=== PATIENT | male | born 1955 | race Caucasian/White ===

== ENCOUNTER 2017-05-03 15:51 | Inpatient (IN) | payer MEDICAID ==
[~2017-05-03] VITALS: Ht 170.2 cm; Wt 90.1 kg
[~2017-05-03 15:51] MED LIST: ALLO300T2 PO; AMLO-94 PO; ATOR20TA66 PO; DABI150C PO; HYDR-4070 PO; LANTUS SQ; OMEP20CA10 PO; TRAZ-143 PO
[2017-05-03 16:19] LABS: BASOPHILS % (AUTO) 0.5 % (0-1); EOSINOPHILS # (AUTO) 0.4 X10'3 (0-0.9); EOSINOPHILS % (AUTO) 5.1 % (0-6); HEMATOCRIT 49.9 % (42.0-52.0); HEMOGLOBIN 16.3 g/dl (14.0-17.9); LYMPHOCYTES # (AUTO) 1.6 X10'3 (1.1-4.8); LYMPHOCYTES % (AUTO) 18.9 % (21-51); MEAN CORPUSCULAR HGB CONC 32.7 % (33.0-36.5); MEAN CORPUSCULAR VOLUME 85.6 FL (78-98); MEAN PLATELET VOLUME 9.1 FL (7.4-10.4); MONOCYTES # (AUTO) 0.7 X10'3 (0-0.9); MONOCYTES % (AUTO) 7.8 % (2-12); NEUTROPHILS # (AUTO) 5.7 X10'3 (1.8-7.7); NEUTROPHILS % (AUTO) 67.7 % (42-75); PLATELET COUNT 187 X10'3 (140-440); RED BLOOD COUNT 5.82 X10'6 (4.70-6.10); RED CELL DISTRIBUTION WIDTH 15.7 % (11.5-14.5); WHITE BLOOD COUNT 8.5 X10'3 (4.5-11.0)
[2017-05-03 16:38] LABS: D-DIMER 0.33 MG/L FEU (0-0.50); INR 1.1 INR; PARTIAL THROMBOPLASTIN TIME 27 SECONDS (22-32); PROTHROMBIN TIME 10.9 SECONDS (9.0-12.0)
[2017-05-03 16:49] LABS: ALANINE AMINOTRANSFERASE 26 U/L (12-78); ALBUMIN 3.8 G/DL (3.4-5.0); ALBUMIN/GLOBULIN RATIO 1.1 (1.1-1.5); ALKALINE PHOSPHATASE 109 IU/L (46-116); ANION GAP 12 (8-16); ASPARTATE AMINO TRANSFERASE 34 U/L (10-37); BILIRUBIN,TOTAL 1.3 MG/DL (0.1-1.0); BLOOD UREA NITROGEN 55 MG/DL (7-18); BUN/CREATININE RATIO 17.7 (5.4-32.0); CALCIUM 8.8 MG/DL (8.5-10.1); CHLORIDE 95 MMOL/L (99-107); GLUCOSE 156 MG/DL (70-104); MAGNESIUM 2.1 MG/DL (1.5-2.4); POTASSIUM 3.3 MMOL/L (3.5-5.1); SODIUM 134 MMOL/L (135-145); TOTAL CARBON DIOXIDE 27.2 MMOL/L (24-32); TOTAL PROTEIN 7.4 G/DL (6.4-8.2); eGFR 20 ML/MIN
[2017-05-03] MEDS ORDERED: aspirin 81mg tab.chew PO ONE (16:50)
[2017-05-03] MEDS ORDERED: nitroGLYCERIN 0.4mg SUBLingual tab SL PRN (16:50)
[2017-05-03] MEDS ORDERED: normal saline 1000ML IV soln IVB ONE (17:50)
[2017-05-03 18:05] LABS: ETHANOL < 0.010 GM/DL (0.0-0.010)
[2017-05-03 19:33] LABS: CLARITY,URINE Clear (Clear); COLOR,URINE Yellow (Yellow); GLUCOSE, URINE Negative (Neg); KETONES,URINE Negative (Neg); LEUKOCYTE ESTERASE ,URINE Negative (Neg); NITRITES, URINE Negative (Neg); OCCULT BLOOD,URINE Negative (Neg); PROTEIN,URINE Negative (Neg); UA COLLECTION TYPE URINAL
[2017-05-03] MEDS ORDERED: HYDR25TA4 PO (19:37)
[2017-05-03] MEDS ORDERED: METO50TA16 PO (19:39)
[2017-05-03] MEDS ORDERED: FURO40TA4 PO (19:39)
[2017-05-03] MEDS ORDERED: GABA-532 PO (19:39)
[2017-05-03] MEDS ORDERED: POTA10TA19 PO (19:40)
[2017-05-03 19:47] LABS: URINE AMPHETAMINE SCREEN POSITIVE (Neg); URINE BARBITUATE SCREEN NEGATIVE (Neg); URINE BENZODIAZEPINES SCREEN NEGATIVE (Neg); URINE CANNABINOID SCREEN NEGATIVE (Neg); URINE COCAINE SCREEN NEGATIVE (Neg); URINE METHADONE SCREEN NEGATIVE (Neg); URINE OPIATE SCREEN NEGATIVE (Neg); URINE PHENCYCLIDINE SCREEN NEGATIVE (Neg)
[2017-05-03] MEDS ORDERED: magnesium 4gm in 100ml NS 100 ML IV PRN (19:50)
[2017-05-03] MEDS ORDERED: LORazepam 2 mg/ml vial IV PRN (19:50)
[2017-05-03] MEDS ORDERED: magnesium Cl slow-release 64mg tablet PO PRN (19:50)
[2017-05-03] MEDS ORDERED: acetaminophen 325mg tablet PO PRN ×2 (19:50)
[2017-05-03] MEDS ORDERED: magnesium 2GM in 50ml NS 50 ML IV PRN (19:50)
[2017-05-03] MEDS ORDERED: ondansetron/PF 4mg/2ml inj IV PRN (19:50)
[2017-05-03] MEDS ORDERED: HYDROcodone/acetaminophen 5mg/325mg tablet PO PRN (19:50)
[2017-05-03] MEDS ORDERED: magnesium hydroxide 30ml (MOM) UD suspension PO PRN (19:50)
[2017-05-03] MEDS ORDERED: potassium Cl 40MEQ/NS 500ml 500 ML IV PRN ×2 (19:50)
[2017-05-03] MEDS ORDERED: HYDROmorphone 1 mg/ml syringe IV PRN ×2 (19:50)
[2017-05-03] MEDS ORDERED: MESSAGE TO PHARMACY PO ONE (19:50)
[2017-05-03] MEDS ORDERED: HYDROcodone/acetaminophen 10/325mg tab PO PRN (19:50)
[2017-05-03] MEDS ORDERED: mag hydrox/Alum hydrox/simeth 30ml oral suspension PO PRN (19:50)
[2017-05-03] MEDS ORDERED: dextrose ORAL solution 15 GM/59 ML bottle PO PRN ×2 (19:50)
[2017-05-03] MEDS ORDERED: dextrose 50%-water 50ml dispensing syringe IV PRN ×2 (19:50)
[2017-05-03] MEDS ORDERED: glucagon, human recombinant 1mg kit SUBCUT PRN (19:50)
[2017-05-03] MEDS ORDERED: sodium bicarbonate (8.4%) inj. 100 MEQ in sodium chloride 0.45% 900 ML IV SCH (19:50)
[2017-05-03 20:16] LABS: CREATINE KINASE 380 U/L (39-308); PHOSPHORUS 3.5 MG/DL (2.3-4.5)
[2017-05-03 21:00] VITALS: BP 129/88
[2017-05-03] MEDS: insulin glargine (Lantus) pen - multi-dose SQ SCH (21:00)
[2017-05-03] MEDS ORDERED: temazepam 15mg capsule PO PRN (21:00)
[2017-05-03] MEDS: potassium Cl 20 mEq SR tablet PO PRN (21:31)
[2017-05-03] MEDS: heparin, porcine 5000 units/ml vial SQ SCH (21:32)
[2017-05-03] MEDS: sodium bicarbonate (8.4%) inj. 100 MEQ in sodium chloride 0.45% 1,000 ML IV SCH (22:41)
[2017-05-04 02:00] VITALS: BP 126/80
[2017-05-04] MEDS: potassium Cl 20 mEq SR tablet PO PRN ×4 (02:40→17:04)
[2017-05-04 04:55] LABS: BASOPHILS % (AUTO) 0.7 % (0-1); EOSINOPHILS # (AUTO) 0.4 X10'3 (0-0.9); EOSINOPHILS % (AUTO) 5.9 % (0-6); HEMATOCRIT 47.9 % (42.0-52.0); HEMOGLOBIN 15.7 g/dl (14.0-17.9); LYMPHOCYTES # (AUTO) 1.2 X10'3 (1.1-4.8); LYMPHOCYTES % (AUTO) 16.9 % (21-51); MEAN CORPUSCULAR HGB CONC 32.8 % (33.0-36.5); MEAN CORPUSCULAR VOLUME 85.2 FL (78-98); MEAN PLATELET VOLUME 9.9 FL (7.4-10.4); MONOCYTES # (AUTO) 0.5 X10'3 (0-0.9); MONOCYTES % (AUTO) 7.8 % (2-12); NEUTROPHILS # (AUTO) 4.8 X10'3 (1.8-7.7); NEUTROPHILS % (AUTO) 68.7 % (42-75); PLATELET COUNT 171 X10'3 (140-440); RED BLOOD COUNT 5.62 X10'6 (4.70-6.10); RED CELL DISTRIBUTION WIDTH 14.5 % (11.5-14.5); WHITE BLOOD COUNT 6.9 X10'3 (4.5-11.0)
[2017-05-04 05:12] LABS: ALBUMIN 3.3 G/DL (3.4-5.0); ANION GAP 8 (8-16); BLOOD UREA NITROGEN 52 MG/DL (7-18); BUN/CREATININE RATIO 19.3 (5.4-32.0); CALCIUM 8.4 MG/DL (8.5-10.1); CHLORIDE 99 MMOL/L (99-107); CHOL/HDL RATIO 4.9 (0.00-4.99); CHOLESTEROL 118 MG/DL (0-200); CREATINE KINASE 266 U/L (39-308); GLUCOSE 180 MG/DL (70-104); HDL CHOLESTEROL 24 MG/DL (35-60); LDL CHOLESTEROL 71 MG/DL (50-100); PHOSPHORUS 2.8 MG/DL (2.3-4.5); SODIUM 137 MMOL/L (135-145); TOTAL CARBON DIOXIDE 29.8 MMOL/L (24-32); TRIGLYCERIDES 138 MG/DL (20-135); eGFR 24 ML/MIN
[2017-05-04 05:56] LABS: POTASSIUM 2.9 MMOL/L (3.5-5.1)
[2017-05-04 07:00] VITALS: BP 122/91
[2017-05-04] MEDS: heparin, porcine 5000 units/ml vial SQ SCH ×2 (07:15→18:59)
[2017-05-04] MEDS: K and/or MAG REPLACEMENT MC SCH (07:51)
[2017-05-04] MEDS: aspirin 325mg tablet PO SCH (07:59)
[2017-05-04 10:00] VITALS: BP 133/78
[2017-05-04] MEDS: sodium bicarbonate (8.4%) inj. 100 MEQ in sodium chloride 0.45% 1,000 ML IV SCH ×2 (10:52→21:05)
[2017-05-04] MEDS: insulin Lispro (HumaLOG) vial - multi-dose SQ SCH ×2 (13:21→18:58)
[2017-05-04 14:00] VITALS: BP 146/91
[2017-05-04 18:00] VITALS: BP 119/86
[2017-05-04] MEDS: insulin glargine (Lantus) pen - multi-dose SQ SCH (21:07)
[2017-05-04 22:00] VITALS: BP 137/77
[2017-05-05 02:00] VITALS: BP 149/91
[2017-05-05 06:00] VITALS: BP 137/91
[2017-05-05 06:11] LABS: BASOPHILS % (AUTO) 0.8 % (0-1); EOSINOPHILS # (AUTO) 0.4 X10'3 (0-0.9); EOSINOPHILS % (AUTO) 6.5 % (0-6); HEMATOCRIT 45.8 % (42.0-52.0); LYMPHOCYTES # (AUTO) 1.5 X10'3 (1.1-4.8); MEAN CORPUSCULAR HEMOGLOBIN 28.6 PG (27.0-31.0); MEAN CORPUSCULAR HGB CONC 32.8 % (33.0-36.5); MEAN CORPUSCULAR VOLUME 87.2 FL (78-98); MEAN PLATELET VOLUME 9.7 FL (7.4-10.4); MONOCYTES # (AUTO) 0.5 X10'3 (0-0.9); MONOCYTES % (AUTO) 7.6 % (2-12); NEUTROPHILS # (AUTO) 3.6 X10'3 (1.8-7.7); NEUTROPHILS % (AUTO) 60.1 % (42-75); PLATELET COUNT 149 X10'3 (140-440); RED BLOOD COUNT 5.25 X10'6 (4.70-6.10); RED CELL DISTRIBUTION WIDTH 15.8 % (11.5-14.5)
[2017-05-05 06:49] LABS: ANION GAP 6 (8-16); BLOOD UREA NITROGEN 38 MG/DL (7-18); BUN/CREATININE RATIO 17.3 (5.4-32.0); CALCIUM 8.5 MG/DL (8.5-10.1); CHLORIDE 102 MMOL/L (99-107); CREATINE KINASE 89 U/L (39-308); GLUCOSE 160 MG/DL (70-104); MAGNESIUM 1.8 MG/DL (1.5-2.4); PHOSPHORUS 2.3 MG/DL (2.3-4.5); POTASSIUM 4.2 MMOL/L (3.5-5.1); SODIUM 139 MMOL/L (135-145); TOTAL CARBON DIOXIDE 31.3 MMOL/L (24-32); eGFR 30 ML/MIN
[2017-05-05] MEDS: K and/or MAG REPLACEMENT MC SCH (07:38)
[2017-05-05] MEDS: aspirin 325mg tablet PO SCH (07:41)
[2017-05-05] MEDS: sodium bicarbonate (8.4%) inj. 100 MEQ in sodium chloride 0.45% 1,000 ML IV SCH (07:42)
[2017-05-05] MEDS: heparin, porcine 5000 units/ml vial SQ SCH (07:42)
[2017-05-05] MEDS: insulin Lispro (HumaLOG) vial - multi-dose SQ SCH ×2 (08:58→13:37)
[2017-05-05 10:50] VITALS: BP 155/90
[2017-05-05] MEDS ORDERED: APIX5TAB3 PO (13:15)
== END 2017-05-05 14:10 | disposition home or self-care (01) | DRG 469 ==
LOC: ER 15:52 → ED HOLD 19:50 → ORTHO 4S 21:09
PROVIDERS: ADMIT Family Medicine; ATTEND Family Medicine
PROC: CB121ZZ Planar Nuclear Medicine Imaging of Lungs and Bronchi using Technetium 99m (Tc-99m) (ICD-10-PCS; principal; 2017-05-04)
DX: N17.0 Acute kidney failure with tubular necrosis (principal); G92 Toxic encephalopathy; E10.22 Type 1 diabetes mellitus with diabetic chronic kidney disease; I13.0 Hypertensive heart and chronic kidney disease with heart failure and stage 1 through stage 4 chronic kidney disease, or unspecified chronic kidney disease; I50.9 Heart failure, unspecified; I48.91 Unspecified atrial fibrillation; E86.0 Dehydration; E10.65 Type 1 diabetes mellitus with hyperglycemia; E87.1 Hypo-osmolality and hyponatremia; N18.4 Chronic kidney disease, stage 4 (severe); E87.6 Hypokalemia; E66.01 Morbid (severe) obesity due to excess calories; Z68.31 Body mass index [BMI] 31.0-31.9, adult; E07.9 Disorder of thyroid, unspecified; E78.5 Hyperlipidemia, unspecified; F15.10 Other stimulant abuse, uncomplicated; F19.10 Other psychoactive substance abuse, uncomplicated; F32.9 Major depressive disorder, single episode, unspecified; G47.33 Obstructive sleep apnea (adult) (pediatric); I25.10 Atherosclerotic heart disease of native coronary artery without angina pectoris; J44.9 Chronic obstructive pulmonary disease, unspecified; K21.9 Gastro-esophageal reflux disease without esophagitis; Z85.528 Personal history of other malignant neoplasm of kidney; I25.2 Old myocardial infarction; Z86.73 Personal history of transient ischemic attack (TIA), and cerebral infarction without residual deficits; Z90.5 Acquired absence of kidney; Z91.14 Patient's other noncompliance with medication regimen; Z95.5 Presence of coronary angioplasty implant and graft
CPT/HCPCS: 36415; 70450; 70544; 70551; 71045; 73030; 73564; 78582; 80048; 80053; 80061; 80305; 80320; 81003; 82550; 82948; 83036; 83735; 83880; 84100; 84132; 84439; 84443; 84484; 85025; 85379; 85610; 85730; 87070; 93005; 93306; 93970; 96360; 96361; 97116; 97161; 99285; A9539; A9540; J1644; J1815; J2405; J7030

== ENCOUNTER 2017-10-14 20:28 | Emergency (ER) | payer MEDICAID ==
[~2017-10-14] VITALS: Ht 177.8 cm; Wt 100.0 kg
[~2017-10-14 20:28] MED LIST changes: +APIX5TAB3 PO; -ATOR20TA66 PO; -DABI150C PO; +GABA-532 PO; +HYDR-3965 PO; -HYDR-4070 PO; +METO50TA16 PO; -OMEP20CA10 PO; +POTA10TA19 PO
[2017-10-14 20:56] LABS: CLARITY,URINE CLEAR (Clear); COLOR,URINE YELLOW (Yellow); GLUCOSE, URINE 500 mg/dl (Neg); KETONES,URINE NEGATIVE (Neg); LEUKOCYTE ESTERASE ,URINE NEGATIVE (Neg); NITRITES, URINE NEGATIVE (Neg); OCCULT BLOOD,URINE NEGATIVE (Neg); PROTEIN,URINE 30 mg/dl (Neg); UROBILINOGEN,URINE 0.2 E.U/dL (0.2-1.0)
[2017-10-14 20:56] LABS: BASOPHILS % (AUTO) 0.2 % (0-1); EOSINOPHILS # (AUTO) 0.4 X10'3 (0-0.9); EOSINOPHILS % (AUTO) 5.3 % (0-6); HEMATOCRIT 43.3 % (42.0-52.0); HEMOGLOBIN 14.5 g/dl (14.0-17.9); LYMPHOCYTES # (AUTO) 1.4 X10'3 (1.1-4.8); LYMPHOCYTES % (AUTO) 17.4 % (21-51); MEAN CORPUSCULAR HGB CONC 33.4 % (33.0-36.5); MEAN CORPUSCULAR VOLUME 83.8 FL (78-98); MEAN PLATELET VOLUME 8.8 FL (7.4-10.4); MONOCYTES # (AUTO) 0.4 X10'3 (0-0.9); MONOCYTES % (AUTO) 5.1 % (2-12); NEUTROPHILS # (AUTO) 5.7 X10'3 (1.8-7.7); PLATELET COUNT 178 X10'3 (140-440); RED BLOOD COUNT 5.17 X10'6 (4.70-6.10); RED CELL DISTRIBUTION WIDTH 15.6 % (11.5-14.5); WHITE BLOOD COUNT 7.9 X10'3 (4.5-11.0)
[2017-10-14 21:01] LABS: UA COLLECTION TYPE STRAIGHT CATH
[2017-10-14 21:02] LABS: BACTERIA,URINE FEW /HPF (Neg); RBC,URINE NONE SEEN /HPF (0-2); SQUAMOUS EPITHELIAL CELL,UR FEW /LPF (FEW); WBC,URINE NONE SEEN /HPF (0-4)
[2017-10-14 21:03] LABS: URINE AMPHETAMINE SCREEN POSITIVE (Neg); URINE BARBITUATE SCREEN NEGATIVE (Neg); URINE BENZODIAZEPINES SCREEN NEGATIVE (Neg); URINE CANNABINOID SCREEN NEGATIVE (Neg); URINE COCAINE SCREEN NEGATIVE (Neg); URINE METHADONE SCREEN NEGATIVE (Neg); URINE OPIATE SCREEN POSITIVE (Neg); URINE PHENCYCLIDINE SCREEN NEGATIVE (Neg)
[2017-10-14 21:30] LABS: ALANINE AMINOTRANSFERASE 19 U/L (12-78); ALBUMIN 3.2 G/DL (3.4-5.0); ALBUMIN/GLOBULIN RATIO 0.9 (1.1-1.5); ALKALINE PHOSPHATASE 126 IU/L (46-116); ANION GAP 10 (8-16); ASPARTATE AMINO TRANSFERASE 10 U/L (10-37); BILIRUBIN,TOTAL 0.5 MG/DL (0.1-1.0); BLOOD UREA NITROGEN 28 MG/DL (7-18); BUN/CREATININE RATIO 13.1 (5.4-32.0); CALCIUM 8.9 MG/DL (8.5-10.1); CHLORIDE 101 MMOL/L (99-107); CREATININE 2.14 MG/DL (0.60-1.10); GLUCOSE 301 MG/DL (70-104); POTASSIUM 3.4 MMOL/L (3.5-5.1); SODIUM 139 MMOL/L (135-145); TOTAL CARBON DIOXIDE 27.8 MMOL/L (24-32); TOTAL PROTEIN 6.9 G/DL (6.4-8.2); eGFR 31 ML/MIN
[2017-10-14 21:34] LABS: LACTIC SEPSIS 1.1 MMOL/L (0.4-2.0)
[2017-10-14 21:43] LABS: CREATINE KINASE 59 U/L (39-308); MAGNESIUM 2.3 MG/DL (1.5-2.4)
[2017-10-14 21:47] LABS: ACETAMINOPHEN < 2.0 UG/ML (10-30)
[2017-10-14 21:48] LABS: ETHANOL < 0.010 GM/DL (0.0-0.010)
[2017-10-14 23:27] VITALS: BP 118/84
== END 2017-10-14 23:29 | disposition home or self-care (01) ==
LOC: ER 20:29
DX: T50.901A Poisoning by unspecified drugs, medicaments and biological substances, accidental (unintentional), initial encounter (principal); R41.82 Altered mental status, unspecified; F15.10 Other stimulant abuse, uncomplicated; F11.90 Opioid use, unspecified, uncomplicated; N18.9 Chronic kidney disease, unspecified; I25.10 Atherosclerotic heart disease of native coronary artery without angina pectoris; I50.9 Heart failure, unspecified; I11.0 Hypertensive heart disease with heart failure; I25.2 Old myocardial infarction; J44.9 Chronic obstructive pulmonary disease, unspecified; K21.9 Gastro-esophageal reflux disease without esophagitis; E11.22 Type 2 diabetes mellitus with diabetic chronic kidney disease; I13.0 Hypertensive heart and chronic kidney disease with heart failure and stage 1 through stage 4 chronic kidney disease, or unspecified chronic kidney disease; Z90.5 Acquired absence of kidney; Z79.4 Long term (current) use of insulin; Y92.89 Other specified places as the place of occurrence of the external cause
CPT/HCPCS: 36415; 70450; 71045; 80053; 80305; 80320; 80329; 81001; 82140; 82550; 82553; 83605; 83735; 84439; 84443; 84484; 85025; 87040; 93005; 99285

== ENCOUNTER 2017-10-19 08:16 | Emergency (ER) | payer MEDICAID ==
[~2017-10-19] VITALS: Ht 170.2 cm; Wt 95.4 kg
[2017-10-19 10:23] LABS: BASOPHILS % (AUTO) 0.7 % (0-1); EOSINOPHILS # (AUTO) 0.4 X10'3 (0-0.9); EOSINOPHILS % (AUTO) 6.2 % (0-6); HEMATOCRIT 44.3 % (42.0-52.0); HEMOGLOBIN 14.8 g/dl (14.0-17.9); LYMPHOCYTES # (AUTO) 1.6 X10'3 (1.1-4.8); LYMPHOCYTES % (AUTO) 22.4 % (21-51); MEAN CORPUSCULAR HEMOGLOBIN 27.8 PG (27.0-31.0); MEAN CORPUSCULAR HGB CONC 33.3 % (33.0-36.5); MEAN CORPUSCULAR VOLUME 83.6 FL (78-98); MEAN PLATELET VOLUME 8.7 FL (7.4-10.4); MONOCYTES # (AUTO) 0.5 X10'3 (0-0.9); MONOCYTES % (AUTO) 7.7 % (2-12); NEUTROPHILS # (AUTO) 4.4 X10'3 (1.8-7.7); PLATELET COUNT 224 X10'3 (140-440); RED CELL DISTRIBUTION WIDTH 15.7 % (11.5-14.5)
[2017-10-19 10:38] LABS: ALANINE AMINOTRANSFERASE 16 U/L (12-78); ALBUMIN 3.2 G/DL (3.4-5.0); ALBUMIN/GLOBULIN RATIO 0.9 (1.1-1.5); ALKALINE PHOSPHATASE 127 IU/L (46-116); ANION GAP 5 (8-16); ASPARTATE AMINO TRANSFERASE 16 U/L (10-37); BILIRUBIN,TOTAL 0.9 MG/DL (0.1-1.0); BLOOD UREA NITROGEN 27 MG/DL (7-18); BUN/CREATININE RATIO 11.6 (5.4-32.0); CALCIUM 8.5 MG/DL (8.5-10.1); CHLORIDE 101 MMOL/L (99-107); CREATININE 2.32 MG/DL (0.60-1.10); GLUCOSE 173 MG/DL (70-104); MAGNESIUM 2.1 MG/DL (1.5-2.4); POTASSIUM 4.3 MMOL/L (3.5-5.1); SODIUM 136 MMOL/L (135-145); TOTAL CARBON DIOXIDE 29.6 MMOL/L (24-32); TOTAL PROTEIN 6.8 G/DL (6.4-8.2); eGFR 29 ML/MIN
[2017-10-19] MEDS ORDERED: SULF1TAB49 PO (12:21)
[2017-10-19] MEDS ORDERED: CEPH-572 PO (12:23)
[2017-10-19 12:51] VITALS: BP 132/70
== END 2017-10-19 12:56 | disposition home or self-care (01) ==
LOC: ER 08:17
DX: R60.0 Localized edema (principal); L02.416 Cutaneous abscess of left lower limb; L02.415 Cutaneous abscess of right lower limb; F15.90 Other stimulant use, unspecified, uncomplicated; I13.0 Hypertensive heart and chronic kidney disease with heart failure and stage 1 through stage 4 chronic kidney disease, or unspecified chronic kidney disease; I50.9 Heart failure, unspecified; N18.9 Chronic kidney disease, unspecified; I25.10 Atherosclerotic heart disease of native coronary artery without angina pectoris; I25.2 Old myocardial infarction; J44.9 Chronic obstructive pulmonary disease, unspecified; K21.9 Gastro-esophageal reflux disease without esophagitis; E11.22 Type 2 diabetes mellitus with diabetic chronic kidney disease; Z86.73 Personal history of transient ischemic attack (TIA), and cerebral infarction without residual deficits; Z79.4 Long term (current) use of insulin; Z79.899 Other long term (current) drug therapy
CPT/HCPCS: 36415; 71045; 80053; 83605; 83735; 83880; 84145; 85025; 87040; 87077; 99285

== ENCOUNTER 2019-06-21 07:42 | Emergency (ER) | payer MEDICARE, MEDICAID ==
[~2019-06-21] VITALS: Ht 170.2 cm; Wt 90.9 kg
[~2019-06-21 07:42] MED LIST changes: -HYDR-3965 PO; -TRAZ-143 PO; +TRAZ-251 PO
[2019-06-21 08:25] LABS: BASOPHILS # (AUTO) 0.1 X10'3 (0-0.2); EOSINOPHILS # (AUTO) 0.3 X10'3 (0-0.9); EOSINOPHILS % (AUTO) 5.8 % (0-6); HEMATOCRIT 50.4 % (42.0-52.0); HEMOGLOBIN 17.2 g/dl (14.0-17.9); LYMPHOCYTES # (AUTO) 1.2 X10'3 (1.1-4.8); LYMPHOCYTES % (AUTO) 21.8 % (21-51); MEAN CORPUSCULAR HEMOGLOBIN 29.2 PG (27.0-31.0); MEAN CORPUSCULAR HGB CONC 34.1 g/dL (33.0-36.5); MEAN CORPUSCULAR VOLUME 85.6 FL (78-98); MEAN PLATELET VOLUME 8.8 FL (7.4-10.4); MONOCYTES # (AUTO) 0.4 X10'3 (0-0.9); MONOCYTES % (AUTO) 7.8 % (2-12); NEUTROPHILS # (AUTO) 3.6 X10'3 (1.8-7.7); NEUTROPHILS % (AUTO) 63.6 % (42-75); PLATELET COUNT 226 X10'3 (140-440); RED BLOOD COUNT 5.89 X10'6 (4.70-6.10); RED CELL DISTRIBUTION WIDTH 14.6 % (11.5-14.5); WHITE BLOOD COUNT 5.6 X10'3 (4.5-11.0)
[2019-06-21] MEDS ORDERED: ipratropium/albuterol 3ml nebule NEB ONE (08:30)
[2019-06-21 08:37] LABS: PARTIAL THROMBOPLASTIN TIME 47 SECONDS (22-32)
[2019-06-21 08:38] LABS: ALANINE AMINOTRANSFERASE 15 U/L (12-78); ALBUMIN 3.4 G/DL (3.4-5.0); ALBUMIN/GLOBULIN RATIO 0.9 (1.1-1.5); ALKALINE PHOSPHATASE 138 IU/L (46-116); ANION GAP 7 (8-16); ASPARTATE AMINO TRANSFERASE 17 U/L (10-37); BILIRUBIN,TOTAL 0.6 MG/DL (0.1-1.0); BLOOD UREA NITROGEN 33 MG/DL (7-18); BUN/CREATININE RATIO 13.2 (5.4-32.0); CALCIUM 8.8 MG/DL (8.5-10.1); CHLORIDE 102 MMOL/L (99-107); GLUCOSE 325 MG/DL (70-104); POTASSIUM 3.6 MMOL/L (3.5-5.1); SODIUM 138 MMOL/L (135-145); TOTAL CARBON DIOXIDE 28.8 MMOL/L (24-32); eGFR 26 ML/MIN
[2019-06-21] MEDS ORDERED: ALBU8HFA PO (09:01)
[2019-06-21 09:14] VITALS: BP 137/85
== END 2019-06-21 09:17 | disposition home or self-care (01) ==
LOC: ER 07:43
DX: J44.1 Chronic obstructive pulmonary disease with (acute) exacerbation (principal); N18.9 Chronic kidney disease, unspecified; I25.2 Old myocardial infarction; I13.0 Hypertensive heart and chronic kidney disease with heart failure and stage 1 through stage 4 chronic kidney disease, or unspecified chronic kidney disease; I50.9 Heart failure, unspecified; K21.9 Gastro-esophageal reflux disease without esophagitis; E11.22 Type 2 diabetes mellitus with diabetic chronic kidney disease; F15.90 Other stimulant use, unspecified, uncomplicated; F32.9 Major depressive disorder, single episode, unspecified; Z86.73 Personal history of transient ischemic attack (TIA), and cerebral infarction without residual deficits; Z79.01 Long term (current) use of anticoagulants; Z79.4 Long term (current) use of insulin; Z79.899 Other long term (current) drug therapy
CPT/HCPCS: 36415; 71045; 80053; 83880; 84484; 85025; 85610; 85730; 93005; 94640; 94760; 99285

== ENCOUNTER 2019-08-30 02:26 | Inpatient (IN) | payer MEDICARE, MEDICAID ==
[~2019-08-30] VITALS: Ht 177.8 cm; Wt 104.5 kg
[2019-08-30] MEDS ORDERED: diphenhydrAMINE 50 mg/ml inj IM ONE (02:30)
[2019-08-30] MEDS ORDERED: LIDOcaine 2% 10ml TOPICAL JELLY (Urojet) MM ONE (02:30)
[2019-08-30] MEDS ORDERED: LORazepam 2 mg/ml vial IM ONE (02:30)
[2019-08-30] MEDS ORDERED: haloperidol lactate 5mg/ml inj IM ONE (02:30)
--- NOTE | 2019-08-30 02:36 | NUR ---
Physician at bedside assessing pt. Pt. is altered and incomprehensible. He is also agitated and uncooperative. Physician to order ativan, benadryl and haldol stat.
--- NOTE | 2019-08-30 02:47 | NUR ---
Pt. given lorazepam 2mg, haldol 5mg and benadryl 25mg for agitation/restlessness.
[2019-08-30 03:00] LABS: CLARITY,URINE CLEAR (Clear); COLOR,URINE YELLOW (Yellow); GLUCOSE, URINE NEGATIVE (Neg); KETONES,URINE NEGATIVE (Neg); LEUKOCYTE ESTERASE ,URINE NEGATIVE (Neg); NITRITES, URINE NEGATIVE (Neg); OCCULT BLOOD,URINE SMALL (Neg); PROTEIN,URINE 100 mg/dl (Neg); UROBILINOGEN,URINE 0.2 E.U/dL (0.2-1.0)
--- NOTE | 2019-08-30 03:00 | NUR ---
Pt. to CT scan at this time with PRINCESS aparicio and security guards.
[2019-08-30 03:05] LABS: BACTERIA,URINE NONE SEEN /HPF (Neg); RBC,URINE 0-2 /HPF (0-2); SQUAMOUS EPITHELIAL CELL,UR FEW /LPF (FEW); UA COLLECTION TYPE STRAIGHT CATH; WBC,URINE NONE SEEN /HPF (0-4)
[2019-08-30 03:07] LABS: PARTIAL THROMBOPLASTIN TIME 43 SECONDS (22-32)
[2019-08-30 03:08] LABS: BASOPHILS # (AUTO) 0.1 X10'3 (0-0.2); BASOPHILS % (AUTO) 0.8 % (0-1); EOSINOPHILS # (AUTO) 0.3 X10'3 (0-0.9); HEMATOCRIT 43.3 % (42.0-52.0); LYMPHOCYTES # (AUTO) 1.7 X10'3 (1.1-4.8); LYMPHOCYTES % (AUTO) 17.6 % (21-51); MEAN CORPUSCULAR HEMOGLOBIN 28.7 PG (27.0-31.0); MEAN CORPUSCULAR HGB CONC 32.4 g/dL (33.0-36.5); MEAN CORPUSCULAR VOLUME 88.7 FL (78-98); MEAN PLATELET VOLUME 8.9 FL (7.4-10.4); MONOCYTES # (AUTO) 0.9 X10'3 (0-0.9); MONOCYTES % (AUTO) 9.1 % (2-12); NEUTROPHILS # (AUTO) 6.5 X10'3 (1.8-7.7); NEUTROPHILS % (AUTO) 69.5 % (42-75); PLATELET COUNT 208 X10'3 (140-440); RED BLOOD COUNT 4.89 X10'6 (4.70-6.10); RED CELL DISTRIBUTION WIDTH 15.3 % (11.5-14.5); WHITE BLOOD COUNT 9.4 X10'3 (4.5-11.0)
[2019-08-30 03:11] LABS: URINE AMPHETAMINE SCREEN POSITIVE (Neg); URINE BARBITUATE SCREEN NEGATIVE (Neg); URINE BENZODIAZEPINES SCREEN NEGATIVE (Neg); URINE CANNABINOID SCREEN NEGATIVE (Neg); URINE COCAINE SCREEN NEGATIVE (Neg); URINE METHADONE SCREEN NEGATIVE (Neg); URINE OPIATE SCREEN NEGATIVE (Neg); URINE PHENCYCLIDINE SCREEN NEGATIVE (Neg)
[2019-08-30 03:13] LABS: ALANINE AMINOTRANSFERASE 22 U/L (12-78); ALBUMIN 3.2 G/DL (3.4-5.0); ALKALINE PHOSPHATASE 134 IU/L (46-116); ANION GAP 13 (8-16); ASPARTATE AMINO TRANSFERASE 34 U/L (10-37); BILIRUBIN,TOTAL 0.4 MG/DL (0.1-1.0); BLOOD UREA NITROGEN 29 MG/DL (7-18); CALCIUM 7.5 MG/DL (8.5-10.1); CHLORIDE 113 MMOL/L (99-107); CREATININE 2.07 MG/DL (0.60-1.10); ETHANOL < 0.010 GM/DL (0.0-0.010); GLUCOSE 76 MG/DL (70-104); SODIUM 149 MMOL/L (135-145); TOTAL CARBON DIOXIDE 23.1 MMOL/L (24-32); TOTAL PROTEIN 6.3 G/DL (6.4-8.2); TROPONIN I < 0.04 NG/ML (0.0-0.05); eGFR 32 ML/MIN
--- NOTE | 2019-08-30 03:22 | NUR ---
Spoke with physician re accucheck result of 35. N.O received to give D50 amp now.
[2019-08-30] MEDS ORDERED: dextrose 50%-water 50ml dispensing syringe IV ONE ×3 (03:25→06:00)
[2019-08-30 03:28] LABS: POTASSIUM 2.6 MMOL/L (3.5-5.1)
[2019-08-30] MEDS: magnesium 2GM in 50ml NS 50 ML IV SCH ×2 (03:51→04:40)
[2019-08-30] MEDS: potassium Cl 10 mEq/100mL bag IV SCH ×2 (03:52→05:00)
[2019-08-30] MEDS ORDERED: FURO40TA4 PO (04:03)
[2019-08-30] MEDS ORDERED: ATOR40TA72 PO (04:03)
[2019-08-30] MEDS ORDERED: AMLO-94 PO (04:03)
[2019-08-30 04:04] LABS: MAGNESIUM 2.2 MG/DL (1.5-2.4)
--- NOTE | 2019-08-30 04:11 | NUR ---
Physician made aware of the labile accucheck results that tends to keep trending down. N.O. received to give another D50. Per ED physician, hospitalist to order in patient regimen for blood sugar control.
[2019-08-30] MEDS ORDERED: dextrose 5%-water 1,000 ML IV SCH (04:25)
--- NOTE | 2019-08-30 04:25 | NUR ---
Hospitalist at bedside examining patient. Relevant information provided to . Shannan. received to given D5W at 100mL/hr IV.
--- NOTE | 2019-08-30 04:32 | NUR ---
Addendum: Per hospitalist, accuchecks to be checked Q1H until further notice.
[2019-08-30] MEDS ORDERED: magnesium hydroxide 30ml (MOM) UD suspension PO PRN (04:55)
[2019-08-30] MEDS ORDERED: dextrose 50%-water 50ml dispensing syringe IV PRN ×2 (04:55)
[2019-08-30] MEDS ORDERED: magnesium 4gm in 100ml NS 100 ML IV PRN (04:55)
[2019-08-30] MEDS ORDERED: ondansetron/PF 4mg/2ml inj IV PRN (04:55)
[2019-08-30] MEDS ORDERED: dextrose ORAL solution 15 GM/59 ML bottle PO PRN ×2 (04:55)
[2019-08-30] MEDS ORDERED: potassium CL 10mEq/100ml bag 100 ML IV PRN (04:55)
[2019-08-30] MEDS ORDERED: magnesium 2GM in 50ml NS 50 ML IV PRN (04:55)
[2019-08-30] MEDS ORDERED: mag hydrox/Alum hydrox/simeth 30ml oral suspension PO PRN (04:55)
[2019-08-30] MEDS ORDERED: MESSAGE TO PHARMACY PO ONE (04:55)
[2019-08-30] MEDS ORDERED: acetaminophen 325mg tablet PO PRN (04:55)
[2019-08-30] MEDS ORDERED: glucagon, human recombinant 1mg kit SUBCUT PRN (04:55)
[2019-08-30] MEDS ORDERED: potassium Cl 20 mEq SR tablet PO PRN (04:55)
[2019-08-30] MEDS ORDERED: insulin Lispro (HumaLOG) vial - multi-dose SQ SCH (04:55)
[2019-08-30] MEDS: dextrose 5%-water 1,000 ML IV SCH ×2 (05:08→16:41)
--- NOTE | 2019-08-30 05:11 | NUR ---
Hospitalist aware of pt's episodic bradycardia. Per MD, it is likely due to pt's sleep apnea.
--- NOTE | 2019-08-30 06:29 | NUR ---
Attempted to call report; receiving RN not available. Will call back
--- NOTE | 2019-08-30 06:50 | NUR ---
Patient in room PCU 3018. I have received report from MARIO SÁNCHEZ and had the opportunity to ask questions and assume patient care.
[2019-08-30 07:00] VITALS: BP 166/103
--- NOTE | 2019-08-30 07:40 | NUR ---
PAGER ID: [phone] MESSAGE: FRANCISCO JAVIER 2622RE: MASTER 3018B NEW ADMIT FROM ER,BP 166/106, ALL MEDS HELD.PT AFIB/FLUCLIVE
[2019-08-30] MEDS ORDERED: enoxaparin 30mg/0.3ml syringe SQ SCH (08:00)
[2019-08-30] MEDS: K and/or MAG REPLACEMENT MC SCH ×2 (08:00→19:50)
[2019-08-30] MEDS ORDERED: enoxaparin 40mg/0.4ml syringe SQ SCH (08:00)
[2019-08-30] MEDS: potassium CL 10mEq/100ml bag 100 ML IV PRN ×2 (08:33→09:34)
--- NOTE | 2019-08-30 09:57 | NUR ---
PAGER ID: [phone] MESSAGE: FRANCISCO JAVIER [phone] RE: MASTER 4018B BP 176/104 ALL MEDS HELD ON MED REC.
--- NOTE | 2019-08-30 10:10 | NUR ---
Pt with T2DM, current A1c 7.0%. Pt admit with encephalopathy likely toxic with significant hypoglycemia and positive for amphetamines. Pt was found unconscious and unresponsive by his roommates, noted to have a BG of 11 when EMS arrived per H&P. DM education not appropriate at this time. Pt currently NPO receiving D5 at 100 mL/hr ([address] has already been consulted for BSS. Will continue to follow. Addendum: 08/30/19 at [address] Amended: Links added.
[2019-08-30 11:00] VITALS: BP 165/98
[2019-08-30] MEDS: potassium Cl 20 mEq SR tablet PO PRN ×2 (13:38→19:47)
[2019-08-30] MEDS: gabapentin 300mg capsule PO SCH ×2 (13:38→20:59)
[2019-08-30 15:00] VITALS: BP 135/72
--- NOTE | 2019-08-30 18:15 | NUR ---
Problems reprioritized. Patient report given, questions answered & plan of care reviewed with JANET SÁNCHEZ.
--- NOTE | 2019-08-30 18:25 | NUR ---
Patient in room PCU 3018. I have received report from PRINCESS Vigil and had the opportunity to ask questions and assume patient care.
[2019-08-30] MEDS: metoprolol tartrate 50mg tablet PO SCH (19:47)
[2019-08-30] MEDS: insulin glargine (Lantus) pen - multi-dose SQ SCH (21:00)
[2019-08-30 22:00] VITALS: BP 131/78
--- NOTE | 2019-08-30 22:19 | NUR ---
PAGER ID: [phone] MESSAGE: This is PRINCESS Chester from x [phone]. Pt in 3018B HenrycomKiran's HR runs 30s - 40s. DX : ALOC, encephalopathy. Hx of CAD c [place], HTN, DM2, sleep apnea, renal CA, CVA. Pt is asymptomatic. BP 131/78. Pls advice.
--- NOTE | 2019-08-30 22:35 | NUR ---
Paged Dr. Archer again. PAGER ID: [phone] MESSAGE: This is PRINCESS Chester from x [phone]. Pt in 3018B Kiran Gipson's HR runs 30s - 40s. DX : ALOC, encephalopathy. Hx of CAD c [place], HTN, DM2, sleep apnea, renal CA, CVA. BP 131/78. Aside from BIPAP, can he have a medication to increase his HR?
--- NOTE | 2019-08-30 23:01 | NUR ---
Paged RT [phone] : Kiran Gipson : Pt has low HR & MD has an order for CPAP daily STAT. Thanks!
--- NOTE | 2019-08-30 23:36 | NUR ---
CPAP set at 12 cmH2O per discussion with patient. Addendum: 08/30/19 at 2339 by Toni [address] RT Amended: Links added.
[2019-08-31] MEDS: dextrose 5%-water 1,000 ML IV SCH ×3 (01:14→21:00)
[2019-08-31 02:00] VITALS: BP 128/78
[2019-08-31 05:53] LABS: BASOPHILS # (AUTO) 0.1 X10'3 (0-0.2); BASOPHILS % (AUTO) 0.9 % (0-1); EOSINOPHILS # (AUTO) 0.4 X10'3 (0-0.9); EOSINOPHILS % (AUTO) 5.4 % (0-6); HEMATOCRIT 40.7 % (42.0-52.0); HEMOGLOBIN 13.4 g/dl (14.0-17.9); LYMPHOCYTES % (AUTO) 30.3 % (21-51); MEAN CORPUSCULAR HEMOGLOBIN 29.1 PG (27.0-31.0); MEAN CORPUSCULAR HGB CONC 32.9 g/dL (33.0-36.5); MEAN CORPUSCULAR VOLUME 88.4 FL (78-98); MEAN PLATELET VOLUME 9.3 FL (7.4-10.4); MONOCYTES # (AUTO) 0.5 X10'3 (0-0.9); MONOCYTES % (AUTO) 8.2 % (2-12); NEUTROPHILS # (AUTO) 3.6 X10'3 (1.8-7.7); NEUTROPHILS % (AUTO) 55.2 % (42-75); PLATELET COUNT 189 X10'3 (140-440); RED BLOOD COUNT 4.61 X10'6 (4.70-6.10); RED CELL DISTRIBUTION WIDTH 15.5 % (11.5-14.5); WHITE BLOOD COUNT 6.6 X10'3 (4.5-11.0)
--- NOTE | 2019-08-31 06:09 | NUR ---
Problems reprioritized. Patient report given, questions answered & plan of care reviewed with PRINCESS Castro.
[2019-08-31 06:12] LABS: ALANINE AMINOTRANSFERASE 15 U/L (12-78); ALBUMIN 2.7 G/DL (3.4-5.0); ALBUMIN/GLOBULIN RATIO 0.8 (1.1-1.5); ALKALINE PHOSPHATASE 123 IU/L (46-116); ANION GAP 3 (8-16); ASPARTATE AMINO TRANSFERASE 18 U/L (10-37); BILIRUBIN,TOTAL 0.8 MG/DL (0.1-1.0); BLOOD UREA NITROGEN 32 MG/DL (7-18); BUN/CREATININE RATIO 14.2 (5.4-32.0); CALCIUM 8.4 MG/DL (8.5-10.1); CHLORIDE 106 MMOL/L (99-107); CREATININE 2.25 MG/DL (0.60-1.10); GLUCOSE 161 MG/DL (70-104); MAGNESIUM 2.4 MG/DL (1.5-2.4); SODIUM 135 MMOL/L (135-145); TOTAL CARBON DIOXIDE 26.2 MMOL/L (24-32); TOTAL PROTEIN 6.1 G/DL (6.4-8.2); eGFR 29 ML/MIN
--- NOTE | 2019-08-31 06:45 | NUR ---
Patient in room PCU 3018. I have received report from Nemo SÁNCHEZ and had the opportunity to ask questions and assume patient care.
[2019-08-31 07:00] VITALS: BP 121/74
[2019-08-31] MEDS: metoprolol tartrate 50mg tablet PO SCH (07:19)
[2019-08-31] MEDS: furosemide 40mg tablet PO SCH (07:55)
[2019-08-31] MEDS: potassium chloride 10mEq ER tablet PO SCH (07:55)
[2019-08-31] MEDS: traZODone 50mg tablet PO SCH (07:56)
[2019-08-31] MEDS: amLODIPine 5mg tablet PO SCH (07:56)
[2019-08-31] MEDS: atorvastatin 20mg tablet PO SCH (07:56)
[2019-08-31] MEDS: gabapentin 300mg capsule PO SCH ×3 (07:56→21:24)
[2019-08-31] MEDS: lisinopril 20mg tablet PO SCH (07:58)
[2019-08-31] MEDS: enoxaparin 40mg/0.4ml syringe SQ SCH (07:59)
[2019-08-31] MEDS: CefTRIAXone 2gm/D5W 50ml 50 ML IV SCH (07:59)
[2019-08-31] MEDS: K and/or MAG REPLACEMENT MC SCH ×2 (08:00→18:54)
[2019-08-31 11:00] VITALS: BP 134/75
[2019-08-31 15:00] VITALS: BP 134/67
[2019-08-31 18:00] VITALS: BP 162/82
--- NOTE | 2019-08-31 18:19 | NUR ---
Problems reprioritized. Patient report given, questions answered & plan of care reviewed with Mohit RN.
--- NOTE | 2019-08-31 19:02 | NUR ---
Patient in room PCU 3018. I have received report from Gloria SÁNCHEZ and had the opportunity to ask questions and assume patient care.
[2019-08-31] MEDS: insulin glargine (Lantus) pen - multi-dose SQ SCH (21:00)
[2019-08-31] MEDS: lactobacillus rhamnosus 10,000 MMU CELLS/CAPSULE PO SCH (21:24)
[2019-08-31 22:00] VITALS: BP 130/79
[2019-09-01 02:00] VITALS: BP 126/82
[2019-09-01] MEDS: dextrose 5%-water 1,000 ML IV SCH (04:17)
[2019-09-01 05:56] LABS: BASOPHILS # (AUTO) 0.1 X10'3 (0-0.2); BASOPHILS % (AUTO) 1.1 % (0-1); EOSINOPHILS # (AUTO) 0.4 X10'3 (0-0.9); EOSINOPHILS % (AUTO) 7.4 % (0-6); HEMATOCRIT 45.7 % (42.0-52.0); HEMOGLOBIN 15.1 g/dl (14.0-17.9); LYMPHOCYTES # (AUTO) 1.3 X10'3 (1.1-4.8); LYMPHOCYTES % (AUTO) 22.7 % (21-51); MEAN CORPUSCULAR HEMOGLOBIN 29.5 PG (27.0-31.0); MEAN CORPUSCULAR VOLUME 89.3 FL (78-98); MEAN PLATELET VOLUME 9.3 FL (7.4-10.4); MONOCYTES # (AUTO) 0.5 X10'3 (0-0.9); MONOCYTES % (AUTO) 9.1 % (2-12); NEUTROPHILS # (AUTO) 3.4 X10'3 (1.8-7.7); NEUTROPHILS % (AUTO) 59.7 % (42-75); PLATELET COUNT 182 X10'3 (140-440); RED BLOOD COUNT 5.13 X10'6 (4.70-6.10); RED CELL DISTRIBUTION WIDTH 15.4 % (11.5-14.5); WHITE BLOOD COUNT 5.6 X10'3 (4.5-11.0)
--- NOTE | 2019-09-01 06:07 | NUR ---
Problems reprioritized. Patient report given, questions answered & plan of care reviewed with Gloria SÁNCHEZ .
--- NOTE | 2019-09-01 06:11 | NUR ---
Patient in room PCU 3018. I have received report from Mohit SÁNCHEZ and had the opportunity to ask questions and assume patient care.
[2019-09-01 06:33] LABS: ALANINE AMINOTRANSFERASE 14 U/L (12-78); ALBUMIN/GLOBULIN RATIO 0.9 (1.1-1.5); ALKALINE PHOSPHATASE 137 IU/L (46-116); ANION GAP 7 (8-16); ASPARTATE AMINO TRANSFERASE 17 U/L (10-37); BILIRUBIN,TOTAL 0.5 MG/DL (0.1-1.0); BLOOD UREA NITROGEN 30 MG/DL (7-18); BUN/CREATININE RATIO 13.8 (5.4-32.0); CALCIUM 8.6 MG/DL (8.5-10.1); CHLORIDE 107 MMOL/L (99-107); CREATININE 2.17 MG/DL (0.60-1.10); GLUCOSE 171 MG/DL (70-104); MAGNESIUM 2.4 MG/DL (1.5-2.4); POTASSIUM 3.9 MMOL/L (3.5-5.1); SODIUM 141 MMOL/L (135-145); TOTAL PROTEIN 6.5 G/DL (6.4-8.2); eGFR 31 ML/MIN
[2019-09-01 07:00] VITALS: BP 160/89
[2019-09-01] MEDS: furosemide 40mg tablet PO SCH (07:44)
[2019-09-01] MEDS: traZODone 50mg tablet PO SCH (07:44)
[2019-09-01] MEDS: potassium chloride 10mEq ER tablet PO SCH (07:44)
[2019-09-01] MEDS: amLODIPine 5mg tablet PO SCH (07:44)
[2019-09-01 07:45] VITALS: BP_SYST 160
[2019-09-01] MEDS: atorvastatin 20mg tablet PO SCH (07:45)
[2019-09-01] MEDS: gabapentin 300mg capsule PO SCH (07:45)
[2019-09-01] MEDS: lactobacillus rhamnosus 10,000 MMU CELLS/CAPSULE PO SCH (07:45)
[2019-09-01] MEDS: lisinopril 20mg tablet PO SCH (07:45)
[2019-09-01] MEDS: enoxaparin 40mg/0.4ml syringe SQ SCH (07:46)
[2019-09-01] MEDS: CefTRIAXone 2gm/D5W 50ml 50 ML IV SCH (07:46)
[2019-09-01] MEDS: K and/or MAG REPLACEMENT MC SCH (07:47)
[2019-09-01] MEDS ORDERED: LANTUS SQ (10:10)
[2019-09-01] MEDS ORDERED: METO25TA6 PO (10:10)
--- NOTE | 2019-09-01 12:04 | NUR ---
Patient stable for discharge per MD order. All discharge information and education reviewed with patient before signing necessary paperwork. IV discontinued with catheter in tact, monitoring tech removed, all patient belongings packed up and sent with patient who was wheeled to lobby and picked up in private vehicle by his son. After he left the floor, RN realized meds were in pharmacy, RN called Kobi (in patient's contact list on [facility]) who is the patient's roommate, to notify the patient his meds are at the hospital. He said he would let him know.
--- NOTE | 2019-09-03 12:26 | NUR ---
Case Management DC follow up: Spoke to pt S/O Connie via telephone s/p:ALOC, hypoglycemia. Reports: pt,"doing really well" Denies pt has experienced: SOB, resp distress, acute/persistent CP, DIALLO, N/V, blurry vision, emergent general pain, abd tenderness or distention, DIALLO, blurry vision, vertigo, syncope, fever, unexplained bruising, bleeding. Went over contents of DC r/t education on managing diabetes, hypoglycemic s/s, lifestyle changes, sleep apnea. Verbalizes understanding of s/s that would warrant -/ER visit for further evaluation. Verbalizes understanding of current/new Rx lower dosage for Metoprolol, lantus & why prescribed; taking as ordered, no ase noted r/t polypharmacy. Acknowledges need to follow-up/keep appts w/PCP Hermelindo Bautista. Questions answered, needs met at [place]. No further questions at this time.
== END 2019-09-01 11:53 | disposition home or self-care (01) | DRG 917 ==
LOC: ER 02:27 → ED HOLD 04:53 → PCU 3S 06:31
PROVIDERS: ADMIT Family Medicine; ATTEND Family Medicine
PROC: 5A09357 Assistance with Respiratory Ventilation, Less than 24 Consecutive Hours, Continuous Positive Airway Pressure (ICD-10-PCS; principal; 2019-08-30)
PROC: 5A09357 Assistance with Respiratory Ventilation, Less than 24 Consecutive Hours, Continuous Positive Airway Pressure (ICD-10-PCS; 2019-08-31)
DX: T43.621A Poisoning by amphetamines, accidental (unintentional), initial encounter (principal); G92 Toxic encephalopathy; E87.2 Acidosis; I13.0 Hypertensive heart and chronic kidney disease with heart failure and stage 1 through stage 4 chronic kidney disease, or unspecified chronic kidney disease; E87.0 Hyperosmolality and hypernatremia; E87.6 Hypokalemia; F15.10 Other stimulant abuse, uncomplicated; E11.22 Type 2 diabetes mellitus with diabetic chronic kidney disease; E11.649 Type 2 diabetes mellitus with hypoglycemia without coma; E78.5 Hyperlipidemia, unspecified; I25.10 Atherosclerotic heart disease of native coronary artery without angina pectoris; I50.9 Heart failure, unspecified; J44.9 Chronic obstructive pulmonary disease, unspecified; F32.9 Major depressive disorder, single episode, unspecified; I48.0 Paroxysmal atrial fibrillation; G47.33 Obstructive sleep apnea (adult) (pediatric); R00.1 Bradycardia, unspecified; E11.42 Type 2 diabetes mellitus with diabetic polyneuropathy; K21.9 Gastro-esophageal reflux disease without esophagitis; K44.9 Diaphragmatic hernia without obstruction or gangrene; N18.9 Chronic kidney disease, unspecified; Z79.4 Long term (current) use of insulin; Z79.899 Other long term (current) drug therapy; Z85.528 Personal history of other malignant neoplasm of kidney; I25.2 Old myocardial infarction; Z86.73 Personal history of transient ischemic attack (TIA), and cerebral infarction without residual deficits; Z90.5 Acquired absence of kidney; Z78.1 Physical restraint status; Z71.51 Drug abuse counseling and surveillance of drug abuser; Y92.89 Other specified places as the place of occurrence of the external cause
CPT/HCPCS: 36415; 70450; 71045; 80053; 80305; 80320; 81001; 82140; 82948; 83036; 83605; 83735; 84484; 85025; 85610; 85730; 87040; 87077; 87081; 87186; 92508; 92616; 93005; 94660; 94760; 96372; 96374; 96376; 97110; 97116; 97161; 97530; 99285; G0378; J0696; J1200; J1630; J1650; J1815; J2060; J3475; J3480; J7070

== ENCOUNTER 2020-09-11 14:28 | Emergency (ER) | payer MEDICARE, MEDICAID ==
[~2020-09-11] VITALS: Ht 170.2 cm; Wt 96.8 kg
[~2020-09-11 14:28] MED LIST changes: -ALLO300T2 PO; -APIX5TAB3 PO; +ATOR40TA72 PO; +FURO40TA4 PO; +LOP25T PO; -METO50TA16 PO
--- NOTE | 2020-09-11 15:02 | NUR ---
RENE WAGNER [phone] RIDE HOME
[2020-09-11 15:26] LABS: CLARITY,URINE CLEAR (Clear); COLOR,URINE YELLOW (Yellow); GLUCOSE, URINE NEGATIVE (Neg); KETONES,URINE NEGATIVE (Neg); LEUKOCYTE ESTERASE ,URINE NEGATIVE (Neg); NITRITES, URINE NEGATIVE (Neg); OCCULT BLOOD,URINE SMALL (Neg); PH,URINE 5.5 (4.8-8.0); PROTEIN,URINE 100 mg/dl (Neg); UA COLLECTION TYPE URINAL; UROBILINOGEN,URINE 0.2 E.U/dL (0.2-1.0)
[2020-09-11 15:31] LABS: BASOPHILS % (AUTO) 0.4 % (0-1); EOSINOPHILS # (AUTO) 0.1 X10'3 (0-0.9); EOSINOPHILS % (AUTO) 1.5 % (0-6); HEMATOCRIT 42.2 % (42.0-52.0); HEMOGLOBIN 13.9 g/dl (14.0-17.9); LYMPHOCYTES # (AUTO) 0.5 X10'3 (1.1-4.8); LYMPHOCYTES % (AUTO) 6.8 % (21-51); MEAN CORPUSCULAR HEMOGLOBIN 29.2 PG (27.0-31.0); MEAN CORPUSCULAR VOLUME 88.4 FL (78-98); MEAN PLATELET VOLUME 8.4 FL (7.4-10.4); MONOCYTES # (AUTO) 0.5 X10'3 (0-0.9); MONOCYTES % (AUTO) 6.2 % (2-12); NEUTROPHILS # (AUTO) 6.2 X10'3 (1.8-7.7); NEUTROPHILS % (AUTO) 85.1 % (42-75); PLATELET COUNT 233 X10'3 (140-440); RED BLOOD COUNT 4.77 X10'6 (4.70-6.10); RED CELL DISTRIBUTION WIDTH 14.9 % (11.5-14.5); WHITE BLOOD COUNT 7.3 X10'3 (4.5-11.0)
--- NOTE | 2020-09-11 15:35 | NUR ---
SOLEDAD BERNAL WITH NO IV ACCESS AT THIS TIME JOSE J FINISHED HIS SANDWHICH EARLIER AND 236 ML FAT FREE MILK NOW HE ATE ANOTHER CHEESESTICK, 4 OZ YOGURT, AND 236 ML WHOLE MILK
[2020-09-11 15:36] LABS: SQUAMOUS EPITHELIAL CELL,UR NONE SEEN /LPF (FEW)
--- NOTE | 2020-09-11 15:36 | NUR ---
JOSE J WOULD LIKE ANOTHER MATTRALPH
[2020-09-11 15:38] LABS: BACTERIA,URINE NONE SEEN /HPF (Neg); RBC,URINE 0-2 /HPF (0-2); WBC,URINE NONE SEEN /HPF (0-4)
[2020-09-11 15:44] LABS: ALANINE AMINOTRANSFERASE 63 U/L (12-78); ALBUMIN 3.3 G/DL (3.4-5.0); ALBUMIN/GLOBULIN RATIO 0.9 (1.1-1.5); ALKALINE PHOSPHATASE 149 IU/L (46-116); ANION GAP 8 (8-16); ASPARTATE AMINO TRANSFERASE 128 U/L (10-37); BILIRUBIN,TOTAL 0.7 MG/DL (0.1-1.0); BLOOD UREA NITROGEN 35 MG/DL (7-18); BUN/CREATININE RATIO 11.8 (5.4-32.0); CALCIUM 8.2 MG/DL (8.5-10.1); CHLORIDE 103 MMOL/L (99-107); CREATININE 2.96 MG/DL (0.60-1.10); GLUCOSE 118 MG/DL (70-104); POTASSIUM 3.9 MMOL/L (3.5-5.1); SODIUM 139 MMOL/L (135-145); TOTAL CARBON DIOXIDE 28.1 MMOL/L (24-32); TOTAL PROTEIN 6.9 G/DL (6.4-8.2); eGFR 21 ML/MIN
[2020-09-11] MEDS ORDERED: normal saline 1000ML IV soln IVB ONE (16:35)
[2020-09-11 18:58] VITALS: BP 138/87
--- NOTE | 2020-09-11 19:03 | NUR ---
Kobi [phone] called - no answer left voicemail. Called alternate # [phone] - went straight to "no one available to answer your call".
== END 2020-09-11 19:11 | disposition home or self-care (01) ==
LOC: ER 14:29
DX: E10.649 Type 1 diabetes mellitus with hypoglycemia without coma (principal); I48.91 Unspecified atrial fibrillation; I25.10 Atherosclerotic heart disease of native coronary artery without angina pectoris; I50.9 Heart failure, unspecified; I11.0 Hypertensive heart disease with heart failure; I25.2 Old myocardial infarction; G47.39 Other sleep apnea; K21.9 Gastro-esophageal reflux disease without esophagitis; E10.22 Type 1 diabetes mellitus with diabetic chronic kidney disease; I12.9 Hypertensive chronic kidney disease with stage 1 through stage 4 chronic kidney disease, or unspecified chronic kidney disease; N18.9 Chronic kidney disease, unspecified; F15.90 Other stimulant use, unspecified, uncomplicated; Z72.89 Other problems related to lifestyle; Z98.890 Other specified postprocedural states; Z90.5 Acquired absence of kidney; Z79.899 Other long term (current) drug therapy
CPT/HCPCS: 36415; 80053; 81001; 82948; 85025; 96360; 96361; 99283; J7030

== ENCOUNTER 2021-08-12 10:19 | Inpatient (IN) | payer MEDICARE, MEDICAID ==
[~2021-08-12] VITALS: Ht 170.2 cm; Wt 210.0 kg
[~2021-08-12 10:19] MED LIST changes: +AMLO-139 PO; -AMLO-94 PO; +POTA-192 PO; -POTA10TA19 PO
--- NOTE | 2021-08-12 10:31 | NUR ---
APPLE JUICE AND TURKEY SANDWICH FED TO PT
[2021-08-12 10:58] LABS: BASOPHILS % (AUTO) 0.4 % (0-1); EOSINOPHILS % (AUTO) 0.7 % (0-6); HEMATOCRIT 43.8 % (42.0-52.0); HEMOGLOBIN 14.2 g/dl (14.0-17.9); LYMPHOCYTES # (AUTO) 0.4 X10'3 (1.1-4.8); LYMPHOCYTES % (AUTO) 7.8 % (21-51); MEAN CORPUSCULAR HEMOGLOBIN 26.7 PG (27.0-31.0); MEAN CORPUSCULAR HGB CONC 32.5 g/dL (33.0-36.5); MEAN CORPUSCULAR VOLUME 82.2 FL (78-98); MEAN PLATELET VOLUME 8.2 FL (7.4-10.4); MONOCYTES # (AUTO) 0.3 X10'3 (0-0.9); MONOCYTES % (AUTO) 5.5 % (2-12); NEUTROPHILS # (AUTO) 4.9 X10'3 (1.8-7.7); NEUTROPHILS % (AUTO) 85.6 % (42-75); PLATELET COUNT 194 X10'3 (140-440); RED BLOOD COUNT 5.32 X10'6 (4.70-6.10); RED CELL DISTRIBUTION WIDTH 16.7 % (11.5-14.5); WHITE BLOOD COUNT 5.8 X10'3 (4.5-11.0)
[2021-08-12 11:01] LABS: CLARITY,URINE CLEAR (Clear); COLOR,URINE STRAW (Yellow); GLUCOSE, URINE NEGATIVE (Neg); KETONES,URINE NEGATIVE (Neg); LEUKOCYTE ESTERASE ,URINE NEGATIVE (Neg); NITRITES, URINE NEGATIVE (Neg); OCCULT BLOOD,URINE SMALL (Neg); PROTEIN,URINE >=300 mg/dl (Neg); UA COLLECTION TYPE NON-SPECIFIED; UROBILINOGEN,URINE 0.2 E.U/dL (0.2-1.0)
[2021-08-12] MEDS ORDERED: sodium bicarbonate (8.4%) inj. 100 MEQ in dextrose 5%-water 1,000 ML IV ONE (11:10)
[2021-08-12 11:11] LABS: BACTERIA,URINE NONE SEEN /HPF (Neg); RBC,URINE 0-2 /HPF (0-2); SQUAMOUS EPITHELIAL CELL,UR NONE SEEN /LPF (FEW); WBC,URINE 0-4 /HPF (0-4)
[2021-08-12 11:22] LABS: ALANINE AMINOTRANSFERASE 21 U/L (12-78); ALBUMIN 2.5 G/DL (3.4-5.0); ALBUMIN/GLOBULIN RATIO 0.7 (1.1-1.5); ALKALINE PHOSPHATASE 126 IU/L (46-116); ANION GAP 12 (8-16); ASPARTATE AMINO TRANSFERASE 25 U/L (10-37); BILIRUBIN,TOTAL 0.5 MG/DL (0.1-1.0); BLOOD UREA NITROGEN 41 MG/DL (7-18); BUN/CREATININE RATIO 11.1 (5.4-32.0); CALCIUM 7.9 MG/DL (8.5-10.1); CHLORIDE 105 MMOL/L (99-107); CREATININE 3.71 MG/DL (0.60-1.10); GLUCOSE 115 MG/DL (70-104); POTASSIUM 3.4 MMOL/L (3.5-5.1); SODIUM 141 MMOL/L (135-145); TOTAL CARBON DIOXIDE 24.5 MMOL/L (24-32); TOTAL PROTEIN 6.3 G/DL (6.4-8.2); eGFR 16 ML/MIN
[2021-08-12] MEDS ORDERED: dextrose 5%-1/2 normal saline 1,000 ML IV SCH (11:50)
[2021-08-12 13:14] LABS: URINE AMPHETAMINE SCREEN POSITIVE (Neg); URINE BARBITUATE SCREEN NEGATIVE (Neg); URINE BENZODIAZEPINES SCREEN NEGATIVE (Neg); URINE CANNABINOID SCREEN NEGATIVE (Neg); URINE COCAINE SCREEN NEGATIVE (Neg); URINE METHADONE SCREEN NEGATIVE (Neg); URINE OPIATE SCREEN NEGATIVE (Neg); URINE PHENCYCLIDINE SCREEN NEGATIVE (Neg)
--- NOTE | 2021-08-12 15:54 | NUR ---
TORRIE [phone] CALL FOR MAEGAN
[2021-08-12] MEDS ORDERED: nitroGLYCERIN 0.4mg/hour patch TD ONE (16:55)
[2021-08-12] MEDS ORDERED: enalaprilat dihydrate 2.5mg/2ml vial IV ONE (16:55)
[2021-08-12] MEDS ORDERED: SERT-433 PO (17:05)
[2021-08-12] MEDS ORDERED: GABA-530 PO (17:05)
[2021-08-12] MEDS ORDERED: ATOR-2 PO (17:05)
[2021-08-12] MEDS ORDERED: METO-384 PO (17:05)
[2021-08-12] MEDS ORDERED: LOSA50TA64 PO (17:05)
[2021-08-12] MEDS ORDERED: DABI150C PO (17:05)
[2021-08-12] MEDS ORDERED: INSU100V9 SQ (17:08)
[2021-08-12] MEDS ORDERED: potassium Cl 20 mEq SR tablet PO PRN (17:20)
[2021-08-12] MEDS ORDERED: magnesium 4gm in 100ml NS 100 ML IV PRN (17:20)
[2021-08-12] MEDS ORDERED: mag hydrox/Alum hydrox/simeth 30ml oral suspension PO PRN (17:20)
[2021-08-12] MEDS ORDERED: sodium chloride inj. 154 MEQ in Dextrose 10%-water IV solution 961.5 ML IV SCH (17:20)
[2021-08-12] MEDS ORDERED: potassium CL 10mEq/100ml bag 100 ML IV PRN (17:20)
[2021-08-12] MEDS ORDERED: magnesium 2GM in 50ml NS 50 ML IV PRN (17:20)
[2021-08-12] MEDS ORDERED: magnesium Cl slow-release 64mg tablet PO PRN (17:20)
[2021-08-12] MEDS ORDERED: magnesium hydroxide 30ml (MOM) UD suspension PO PRN (17:20)
[2021-08-12] MEDS ORDERED: ondansetron/PF 4mg/2ml inj IV PRN (17:20)
[2021-08-12] MEDS ORDERED: MESSAGE TO PHARMACY PO ONE (18:10)
[2021-08-12] MEDS ORDERED: dextrose 50%-water 50ml dispensing syringe IV PRN ×2 (18:10)
[2021-08-12] MEDS ORDERED: glucagon, human recombinant 1mg kit SUBCUT PRN (18:10)
[2021-08-12] MEDS ORDERED: DEXTROSE 15 GM of carb/4 tabs (each vial/BOTTLE has 4 tablets) PO PRN ×2 (18:10)
[2021-08-12 18:19] LABS: MAGNESIUM 2.1 MG/DL (1.5-2.4); POTASSIUM 3.3 MMOL/L (3.5-5.1)
[2021-08-12 18:31] LABS: HEMOGLOBIN A1C 6.4 % (4.5-6.2)
[2021-08-12] MEDS: gabapentin 100mg capsule PO SCH (19:41)
[2021-08-12] MEDS: amLODIPine 5mg tablet PO SCH (19:41)
[2021-08-12] MEDS: docusate sod 100mg capsule PO SCH (19:41)
[2021-08-12] MEDS: Dextrose 10%-water IV solution 1,000 ML IV SCH (19:41)
[2021-08-12] MEDS: K and/or MAG REPLACEMENT MC SCH (20:00)
[2021-08-12 20:19] VITALS: BP 185/98
[2021-08-12] MEDS: traZODone 50mg tablet PO SCH (20:46)
[2021-08-12] MEDS: hydrALAZINE 20mg/ml inj. IV PRN (20:46)
[2021-08-12] MEDS: insulin glargine (Lantus) pen - multi-dose SQ SCH (21:00)
[2021-08-12] MEDS ORDERED: INSULIN GLARGINE HUM REC ANLOG 50 UNIT SQ SCH (21:00)
[2021-08-12] MEDS: potassium Cl 20 mEq SR tablet PO PRN (21:56)
[2021-08-12 22:00] VITALS: BP 167/100
[2021-08-12] MEDS: hydrALAZINE 25 MG tablet PO SCH (23:05)
[2021-08-13] VITALS (8 sets, daily range): BP systolic 153–185; BP diastolic 70–109
[2021-08-13] MEDS: hydrALAZINE 20mg/ml inj. IV PRN ×2 (02:38→13:31)
--- NOTE | 2021-08-13 03:19 | NUR ---
remins hypoglycemic after jurosetta sumner pcashish sndwitch crckersd with rosalva. Patient eating nother snck now
[2021-08-13] MEDS: acetaminophen 325mg tablet PO PRN (05:48)
[2021-08-13] MEDS: Dextrose 10%-water IV solution 1,000 ML IV SCH ×2 (07:39→21:09)
[2021-08-13] MEDS: atorvastatin 20mg tablet PO SCH (07:39)
[2021-08-13] MEDS: amLODIPine 5mg tablet PO SCH ×2 (07:40→19:34)
[2021-08-13] MEDS: dabigatran 150mg capsule PO SCH (07:40)
[2021-08-13] MEDS: furosemide 40mg tablet PO SCH (07:40)
[2021-08-13] MEDS: sertraline 50mg tablet PO SCH (07:41)
[2021-08-13] MEDS: hydrALAZINE 25 MG tablet PO SCH ×3 (07:41→23:24)
[2021-08-13] MEDS: docusate sod 100mg capsule PO SCH ×2 (07:41→19:34)
[2021-08-13] MEDS: gabapentin 100mg capsule PO SCH (07:41)
[2021-08-13] MEDS: K and/or MAG REPLACEMENT MC SCH ×2 (08:00→20:00)
[2021-08-13] MEDS ORDERED: losartan 50mg tablet PO SCH (08:00)
[2021-08-13 08:28] LABS: BASOPHILS % (AUTO) 0.6 % (0-1); EOSINOPHILS # (AUTO) 0.5 X10'3 (0-0.9); EOSINOPHILS % (AUTO) 6.8 % (0-6); HEMATOCRIT 41.1 % (42.0-52.0); HEMOGLOBIN 13.6 g/dl (14.0-17.9); LYMPHOCYTES % (AUTO) 14.9 % (21-51); MEAN CORPUSCULAR HEMOGLOBIN 27.5 PG (27.0-31.0); MEAN CORPUSCULAR HGB CONC 33.1 g/dL (33.0-36.5); MEAN PLATELET VOLUME 8.3 FL (7.4-10.4); MONOCYTES # (AUTO) 0.5 X10'3 (0-0.9); MONOCYTES % (AUTO) 7.7 % (2-12); NEUTROPHILS # (AUTO) 4.9 X10'3 (1.8-7.7); PLATELET COUNT 177 X10'3 (140-440); RED BLOOD COUNT 4.96 X10'6 (4.70-6.10); RED CELL DISTRIBUTION WIDTH 16.6 % (11.5-14.5)
[2021-08-13 09:05] LABS: ALBUMIN 2.3 G/DL (3.4-5.0); ANION GAP 11 (8-16); BLOOD UREA NITROGEN 38 MG/DL (7-18); BUN/CREATININE RATIO 11.4 (5.4-32.0); CHLORIDE 104 MMOL/L (99-107); CREATININE 3.34 MG/DL (0.60-1.10); GLUCOSE 163 MG/DL (70-104); MAGNESIUM 2.3 MG/DL (1.5-2.4); SODIUM 139 MMOL/L (135-145); TOTAL CARBON DIOXIDE 24.1 MMOL/L (24-32); eGFR 19 ML/MIN
[2021-08-13] MEDS ORDERED: pneumococcal 23-VAL P-sac vacc 25 mcg/0.5ml vial IMVAC ONE (10:00)
--- NOTE | 2021-08-13 18:30 | NUR ---
Patient in room PCU 3018. I have received report from darleen quevedo and had the opportunity to ask questions and assume patient care.
[2021-08-13] MEDS: insulin glargine (Lantus) pen - multi-dose SQ SCH (21:00)
[2021-08-13] MEDS: traZODone 50mg tablet PO SCH (21:03)
[2021-08-14] VITALS (13 sets, daily range): BP systolic 150–201; BP diastolic 89–109
[2021-08-14] MEDS: hydrALAZINE 20mg/ml inj. IV PRN ×3 (05:13→16:25)
[2021-08-14] MEDS: Dextrose 10%-water IV solution 1,000 ML IV SCH (05:35)
--- NOTE | 2021-08-14 06:04 | NUR ---
Paged Dr. Miranda regarding patient blood pressure is 193/74. It has been 190-200 for an hour. Gave 10 mg hydralazine IV 50 minutes ago patients BP is still in the 190s.
[2021-08-14] MEDS ORDERED: cloNIDine 0.1 mg tablet PO ONE (06:30)
--- NOTE | 2021-08-14 06:30 | NUR ---
Patient in room PCU 3018. I have received report from PRINCESS Culver and had the opportunity to ask questions and assume patient care.
--- NOTE | 2021-08-14 06:39 | NUR ---
Problems reprioritized. Patient report given, questions answered & plan of care reviewed with holli RN.
[2021-08-14] MEDS: atorvastatin 20mg tablet PO SCH (07:52)
[2021-08-14] MEDS: dabigatran 150mg capsule PO SCH (07:52)
[2021-08-14] MEDS: hydrALAZINE 25 MG tablet PO SCH ×2 (07:53→15:27)
[2021-08-14] MEDS: docusate sod 100mg capsule PO SCH ×2 (07:54→21:28)
[2021-08-14] MEDS: gabapentin 100mg capsule PO SCH (07:54)
[2021-08-14] MEDS: amLODIPine 5mg tablet PO SCH ×2 (07:55→21:29)
[2021-08-14] MEDS: sertraline 50mg tablet PO SCH (07:55)
[2021-08-14] MEDS: losartan 50mg tablet PO SCH (07:56)
[2021-08-14] MEDS: furosemide 40mg tablet PO SCH (07:57)
[2021-08-14] MEDS: K and/or MAG REPLACEMENT MC SCH ×2 (08:00→20:00)
--- NOTE | 2021-08-14 08:14 | NUR ---
PAGER ID: [phone] MESSAGE: Room: 3015B: Pt's blood glucose is 195. They're eating and have D10 infusing. There is a note for nursing not to treat their blood glucose with insulin. Do you want to stop the D10 and treat their blood glucose? Zakiya, RN [phone]
[2021-08-14 08:17] LABS: ALBUMIN 2.3 G/DL (3.4-5.0); ANION GAP 8 (8-16); BLOOD UREA NITROGEN 35 MG/DL (7-18); CALCIUM 7.7 MG/DL (8.5-10.1); CHLORIDE 105 MMOL/L (99-107); CREATININE 3.19 MG/DL (0.60-1.10); GLUCOSE 180 MG/DL (70-104); POTASSIUM 3.3 MMOL/L (3.5-5.1); SODIUM 138 MMOL/L (135-145); TOTAL CARBON DIOXIDE 24.7 MMOL/L (24-32); eGFR 20 ML/MIN
[2021-08-14 08:18] LABS: BASOPHILS % (AUTO) 0.8 % (0-1); EOSINOPHILS # (AUTO) 0.3 X10'3 (0-0.9); EOSINOPHILS % (AUTO) 6.4 % (0-6); HEMOGLOBIN 13.9 g/dl (14.0-17.9); LYMPHOCYTES % (AUTO) 18.7 % (21-51); MEAN CORPUSCULAR HEMOGLOBIN 27.3 PG (27.0-31.0); MEAN CORPUSCULAR HGB CONC 33.1 g/dL (33.0-36.5); MEAN CORPUSCULAR VOLUME 82.4 FL (78-98); MEAN PLATELET VOLUME 8.5 FL (7.4-10.4); MONOCYTES # (AUTO) 0.4 X10'3 (0-0.9); MONOCYTES % (AUTO) 7.2 % (2-12); NEUTROPHILS # (AUTO) 3.4 X10'3 (1.8-7.7); NEUTROPHILS % (AUTO) 66.9 % (42-75); PLATELET COUNT 186 X10'3 (140-440); RED BLOOD COUNT 5.09 X10'6 (4.70-6.10); RED CELL DISTRIBUTION WIDTH 16.5 % (11.5-14.5); WHITE BLOOD COUNT 5.2 X10'3 (4.5-11.0)
[2021-08-14] MEDS: insulin Lispro (HumaLOG) vial - multi-dose SQ SCH (09:43)
[2021-08-14] MEDS: potassium Cl 20 mEq SR tablet PO PRN ×3 (09:44→18:06)
--- NOTE | 2021-08-14 14:29 | NUR ---
Pt's 1200 blood glucose is 146. Glucometer will not upload the result.
--- NOTE | 2021-08-14 14:31 | NUR ---
PAGER ID: [phone] MESSAGE: Room; 7777B: FYI: the pt's latest blood glucose was 146 and their BP was 168/91 HR 71. PRINCESS Sigala [phone]
[2021-08-14] MEDS ORDERED: NOR5T PO (14:37)
[2021-08-14] MEDS ORDERED: INSU100V9 SQ (14:37)
[2021-08-14] MEDS ORDERED: LOSA50TA64 PO (14:37)
--- NOTE | 2021-08-14 16:09 | NUR ---
PAGER ID: [phone] MESSAGE: [facility] Pt's BP is 186/99 HR 72. I will give him his PRN hydralazine now. Do you still want to discharge him to home? PRINCESS Sigala [phone]
--- NOTE | 2021-08-14 17:10 | NUR ---
PAGER ID: [phone] MESSAGE: Room: 1563B: Yocom: Pt's BP is now 186/103 HR 83. Can I get another PRN antihypertensive? PRINCESS Sigala [phone]
--- NOTE | 2021-08-14 17:41 | NUR ---
Discharge order canceled per Dr. Molina as a result of the pt's SBP remaining >160 after PRN hydralazine administration. The pt's recheck BP was 186/103.
--- NOTE | 2021-08-14 18:39 | NUR ---
Problems reprioritized. Patient report given, questions answered & plan of care reviewed with PRINCESS Montalvo.
[2021-08-14] MEDS: insulin glargine (Lantus) pen - multi-dose SQ SCH (21:00)
[2021-08-14] MEDS: traZODone 50mg tablet PO SCH (21:29)
--- NOTE | 2021-08-14 21:50 | NUR ---
PAGER ID: [phone] MESSAGE: Pt RM 3018B Having 7/10 headache BP 174/109 HR73 just gave BP med. requesting Tylenol for headache. Katia [phone]
[2021-08-14] MEDS ORDERED: acetaminophen 325mg tablet PO PRN (22:00)
[2021-08-14] MEDS: acetaminophen 325mg tablet PO PRN (22:33)
--- NOTE | 2021-08-14 23:30 | NUR ---
Pt refused new IV at this time, has field start and does not want to be poked again right now.
[2021-08-15] MEDS: hydrALAZINE 25 MG tablet PO SCH ×2 (00:33→07:54)
[2021-08-15 02:00] VITALS: BP 172/102
[2021-08-15 02:12] VITALS: BP 170/102
[2021-08-15] MEDS: hydrALAZINE 20mg/ml inj. IV PRN ×2 (02:17→10:17)
--- NOTE | 2021-08-15 03:20 | NUR ---
PAGER ID: [phone] MESSAGE: PT 3018b BP 172/102 HR77 after giving PRN Hydralazine. Please advise
--- NOTE | 2021-08-15 03:25 | NUR ---
Dr. Cordova ordered 5mg PO amlodipine one time to bring down the 172/111 BP
[2021-08-15] MEDS ORDERED: amLODIPine 5mg tablet PO ONE (03:30)
[2021-08-15 05:27] VITALS: BP 175/106
[2021-08-15 06:00] VITALS: BP 182/103
--- NOTE | 2021-08-15 06:16 | NUR ---
Problems reprioritized. Patient report given, questions answered & plan of care reviewed with PRINCESS Sigala.
--- NOTE | 2021-08-15 06:30 | NUR ---
Patient in room PCU 3018. I have received report from PRINCESS Montalvo and had the opportunity to ask questions and assume patient care.
[2021-08-15 06:57] LABS: BASOPHILS # (AUTO) 0.1 X10'3 (0-0.2); BASOPHILS % (AUTO) 0.8 % (0-1); EOSINOPHILS # (AUTO) 0.3 X10'3 (0-0.9); EOSINOPHILS % (AUTO) 4.7 % (0-6); HEMATOCRIT 43.4 % (42.0-52.0); HEMOGLOBIN 14.4 g/dl (14.0-17.9); LYMPHOCYTES % (AUTO) 16.1 % (21-51); MEAN CORPUSCULAR HEMOGLOBIN 27.2 PG (27.0-31.0); MEAN CORPUSCULAR HGB CONC 33.1 g/dL (33.0-36.5); MEAN CORPUSCULAR VOLUME 82.1 FL (78-98); MEAN PLATELET VOLUME 8.5 FL (7.4-10.4); MONOCYTES # (AUTO) 0.5 X10'3 (0-0.9); MONOCYTES % (AUTO) 7.5 % (2-12); NEUTROPHILS # (AUTO) 4.4 X10'3 (1.8-7.7); NEUTROPHILS % (AUTO) 70.9 % (42-75); PLATELET COUNT 222 X10'3 (140-440); RED BLOOD COUNT 5.29 X10'6 (4.70-6.10); WHITE BLOOD COUNT 6.2 X10'3 (4.5-11.0)
[2021-08-15 07:02] LABS: ALBUMIN 2.4 G/DL (3.4-5.0); ANION GAP 9 (8-16); BLOOD UREA NITROGEN 33 MG/DL (7-18); BUN/CREATININE RATIO 10.2 (5.4-32.0); CALCIUM 8.2 MG/DL (8.5-10.1); CHLORIDE 106 MMOL/L (99-107); CREATININE 3.23 MG/DL (0.60-1.10); GLUCOSE 139 MG/DL (70-104); MAGNESIUM 2.4 MG/DL (1.5-2.4); POTASSIUM 4.1 MMOL/L (3.5-5.1); SODIUM 139 MMOL/L (135-145); TOTAL CARBON DIOXIDE 24.4 MMOL/L (24-32); eGFR 19 ML/MIN
[2021-08-15] MEDS: furosemide 40mg tablet PO SCH (07:50)
[2021-08-15] MEDS: atorvastatin 20mg tablet PO SCH (07:51)
[2021-08-15] MEDS: docusate sod 100mg capsule PO SCH (07:51)
[2021-08-15] MEDS: gabapentin 100mg capsule PO SCH (07:51)
[2021-08-15] MEDS: sertraline 50mg tablet PO SCH (07:52)
[2021-08-15] MEDS: dabigatran 150mg capsule PO SCH (07:52)
[2021-08-15] MEDS: losartan 50mg tablet PO SCH (07:53)
[2021-08-15] MEDS: K and/or MAG REPLACEMENT MC SCH (07:54)
[2021-08-15] MEDS: amLODIPine 5mg tablet PO SCH (07:54)
[2021-08-15] MEDS: insulin Lispro (HumaLOG) vial - multi-dose SQ SCH (08:35)
[2021-08-15 10:36] VITALS: BP 164/94
[2021-08-15 11:00] VITALS: BP 177/98
--- NOTE | 2021-08-15 13:13 | NUR ---
Pt discharged from the hospital to home. Discharge paperwork signed and reviewed with the assistance of this automotive service writer. Home medications and belongings were sent home with the pt. Discharge medications are to be picked up at the pt's preferred pharmacy. Telemetry and PIV were removed at the time of discharge.
== END 2021-08-15 13:00 | disposition home health service (06) | DRG 637 ==
LOC: ER 10:19 → ED HOLD 17:23 → PCU 3S 20:08
PROVIDERS: ADMIT Family Medicine; ATTEND Family Medicine
PROC: 3E0234Z Introduction of Serum, Toxoid and Vaccine into Muscle, Percutaneous Approach (ICD-10-PCS; principal; 2021-08-13)
DX: E11.649 Type 2 diabetes mellitus with hypoglycemia without coma (principal); G93.41 Metabolic encephalopathy; I13.0 Hypertensive heart and chronic kidney disease with heart failure and stage 1 through stage 4 chronic kidney disease, or unspecified chronic kidney disease; I16.0 Hypertensive urgency; N18.2 Chronic kidney disease, stage 2 (mild); I48.91 Unspecified atrial fibrillation; E11.22 Type 2 diabetes mellitus with diabetic chronic kidney disease; E78.5 Hyperlipidemia, unspecified; F15.10 Other stimulant abuse, uncomplicated; F32.A Depression, unspecified; G47.30 Sleep apnea, unspecified; K21.9 Gastro-esophageal reflux disease without esophagitis; I25.10 Atherosclerotic heart disease of native coronary artery without angina pectoris; I50.9 Heart failure, unspecified; J44.9 Chronic obstructive pulmonary disease, unspecified; Z79.4 Long term (current) use of insulin; Z86.73 Personal history of transient ischemic attack (TIA), and cerebral infarction without residual deficits; I25.2 Old myocardial infarction; Z90.5 Acquired absence of kidney; Z23 Encounter for immunization; Z79.01 Long term (current) use of anticoagulants; Z79.899 Other long term (current) drug therapy; Z71.51 Drug abuse counseling and surveillance of drug abuser; Z91.14 Patient's other noncompliance with medication regimen
CPT/HCPCS: 36415; 70450; 71045; 80048; 80053; 80305; 81001; 82948; 83036; 83605; 83735; 84132; 84145; 84484; 85025; 87040; 90732; 96361; 96374; 97116; 97161; 99285; G0378; J0360; J1815; J3490; J7042

== ENCOUNTER 2021-08-16 09:25 | Emergency (ER) | payer MEDICARE, MEDICAID ==
[~2021-08-16] VITALS: Ht 170.2 cm; Wt 97.7 kg
[~2021-08-16 09:25] MED LIST changes: -AMLO-139 PO; +ATOR-2 PO; -ATOR40TA72 PO; +DABI150C PO; +GABA-530 PO; -GABA-532 PO; +INSU100V9 SQ; -LANTUS SQ; -LOP25T PO; +LOSA50TA64 PO; +METO-384 PO; +NOR5T PO; -POTA-192 PO; +SERT-433 PO
[2021-08-16] MEDS ORDERED: amLODIPine 5mg tablet PO ONE (09:50)
[2021-08-16] MEDS ORDERED: cloNIDine 0.1 mg tablet PO ONE (09:50)
[2021-08-16] MEDS ORDERED: metoprolol tartrate 50mg tablet PO ONE (09:50)
[2021-08-16] MEDS ORDERED: losartan 50mg tablet PO SCH (09:50)
[2021-08-16 10:17] VITALS: BP 175/104
== END 2021-08-16 10:55 | disposition home or self-care (01) ==
LOC: ER 09:26
DX: I10 Essential (primary) hypertension (principal); I48.91 Unspecified atrial fibrillation; I25.10 Atherosclerotic heart disease of native coronary artery without angina pectoris; I25.2 Old myocardial infarction; J44.9 Chronic obstructive pulmonary disease, unspecified; K21.9 Gastro-esophageal reflux disease without esophagitis; I13.2 Hypertensive heart and chronic kidney disease with heart failure and with stage 5 chronic kidney disease, or end stage renal disease; E11.22 Type 2 diabetes mellitus with diabetic chronic kidney disease; N18.6 End stage renal disease; F32.A Depression, unspecified; F15.90 Other stimulant use, unspecified, uncomplicated; Z86.73 Personal history of transient ischemic attack (TIA), and cerebral infarction without residual deficits; Z99.2 Dependence on renal dialysis; Z85.9 Personal history of malignant neoplasm, unspecified; Z98.890 Other specified postprocedural states; Z79.4 Long term (current) use of insulin; Z79.899 Other long term (current) drug therapy
CPT/HCPCS: 82948; 99284

== ENCOUNTER 2021-08-18 17:20 | Emergency (ER) | payer MEDICARE, MEDICAID ==
[~2021-08-18] VITALS: Ht 170.2 cm; Wt 95.5 kg
[2021-08-18 17:27] VITALS: BP 184/100
[2021-08-18] MEDS ORDERED: METO100T7 PO (18:19)
== END 2021-08-18 19:09 | disposition home or self-care (01) ==
LOC: ER 19:06
DX: I13.0 Hypertensive heart and chronic kidney disease with heart failure and stage 1 through stage 4 chronic kidney disease, or unspecified chronic kidney disease (principal); E11.22 Type 2 diabetes mellitus with diabetic chronic kidney disease; N18.9 Chronic kidney disease, unspecified; I48.91 Unspecified atrial fibrillation; I25.10 Atherosclerotic heart disease of native coronary artery without angina pectoris; I25.2 Old myocardial infarction; J44.9 Chronic obstructive pulmonary disease, unspecified; K21.9 Gastro-esophageal reflux disease without esophagitis; F32.A Depression, unspecified; F15.90 Other stimulant use, unspecified, uncomplicated; Z86.73 Personal history of transient ischemic attack (TIA), and cerebral infarction without residual deficits; Z85.9 Personal history of malignant neoplasm, unspecified; Z98.890 Other specified postprocedural states; Z72.89 Other problems related to lifestyle; Z79.4 Long term (current) use of insulin; Z79.899 Other long term (current) drug therapy
CPT/HCPCS: 82948; 99283

== ENCOUNTER 2021-09-18 14:56 | Emergency (ER) | payer MEDICARE, MEDICAID ==
[~2021-09-18] VITALS: Ht 170.2 cm; Wt 96.8 kg
[~2021-09-18 14:56] MED LIST changes: -FURO40TA4 PO
[2021-09-18 15:08] VITALS: BP_DIAS 99
[2021-09-18] MEDS ORDERED: amLODIPine 5mg tablet PO ONE (15:20)
[2021-09-18 15:26] VITALS: BP_SYST 195
[2021-09-18] MEDS ORDERED: ATOR-2 PO (15:27)
[2021-09-18] MEDS ORDERED: DABI75CA3 PO (15:27)
== END 2021-09-18 15:44 | disposition home or self-care (01) ==
LOC: ER 14:56
DX: I11.0 Hypertensive heart disease with heart failure (principal); I50.9 Heart failure, unspecified; I48.91 Unspecified atrial fibrillation; I25.10 Atherosclerotic heart disease of native coronary artery without angina pectoris; I25.2 Old myocardial infarction; J44.9 Chronic obstructive pulmonary disease, unspecified; G47.30 Sleep apnea, unspecified; K21.9 Gastro-esophageal reflux disease without esophagitis; I12.9 Hypertensive chronic kidney disease with stage 1 through stage 4 chronic kidney disease, or unspecified chronic kidney disease; E11.22 Type 2 diabetes mellitus with diabetic chronic kidney disease; N18.9 Chronic kidney disease, unspecified; F15.90 Other stimulant use, unspecified, uncomplicated; Z85.9 Personal history of malignant neoplasm, unspecified; Z86.73 Personal history of transient ischemic attack (TIA), and cerebral infarction without residual deficits; Z90.5 Acquired absence of kidney; Z72.89 Other problems related to lifestyle; Z79.899 Other long term (current) drug therapy; Z79.4 Long term (current) use of insulin
CPT/HCPCS: 99283